=== PATIENT | female | born 1955 | race Caucasian/White ===

== ENCOUNTER 2020-06-08 08:03 | Outpatient (CLI) | payer OTHER, SELFPAY ==
[2020-06-08 08:30] LABS: Hematocrit 43.6 % (37.0-47.0); Hemoglobin 14.4 g/dL (12.0-15.0); Mean Corpuscular Hemoglobin 29.4 pg (26-34); Mean Corpuscular Volume 89.2 fl (80-100); Mean Platelet Volume 9.4 fl (7.4-10.4); Platelet Count Result 230 k/mm3 (150-375); Red Blood Count 4.89 M/mm3 (4.2-5.4); Red Cell Distribution Width 12.8 % (11.5-14.5); White Blood Count 4.5 K/mm3 (4.5-10.0)
[2020-06-08 08:54] LABS: LDL Cholesterol Direct 93 mg/dL
[2020-06-08 09:29] LABS: Alanine Aminotransferase 16 U/L (4-35); Albumin Level 4.2 g/dL (3.5-5.1); Alkaline Phosphatase 69 U/L (38-126); Anion Gap 4 mmol/L (8-16); Aspartate Amino Transferase 24 U/L (14-36); Bilirubin,Total 0.5 mg/dL (0.2-1.3); Blood Urea Nitrogen 21 mg/dL (7-17); Carbon Dioxide 28 mmol/L (22-30); Chloride 108 mmol/L (98-107); Cholesterol 190 mg/dL (0-200); Estimated Glomerular Filt Rate > 60; Glucose 91 mg/dL (65-105); HDL Direct 72 mg/dL; Potassium 4.5 mmol/L (3.4-5.0); Sodium 140 mmol/L (137-145); Triglycerides 45 mg/dL (<150)
[2020-06-08 09:38] LABS: Vitamin D 25 Hydroxy 51.2 ng/mL
== END 2020-06-08 08:04 | disposition home or self-care (01) ==
PROVIDERS: PCP Family Medicine; Visit Provider Family Medicine
DX: Z00.00 Encounter for general adult medical examination without abnormal findings (principal); R53.83 Other fatigue; E78.2 Mixed hyperlipidemia; E55.9 Vitamin D deficiency, unspecified
CPT/HCPCS: 36415; 80053; 80061; 82306; 84443; 85027

== ENCOUNTER 2021-06-05 09:16 | Outpatient (CLI) | payer MEDICARE, OTHER, SELFPAY ==
[2021-06-05 09:44] LABS: Hematocrit 45.6 % (37.0-47.0); Hemoglobin 14.9 g/dL (12.0-15.0); Mean Corpuscular HGB Conc 32.7 g/dl (32-36); Mean Corpuscular Hemoglobin 29.6 pg (26-34); Mean Corpuscular Volume 90.5 fl (80-100); Mean Platelet Volume 9.3 fl (7.4-10.4); Platelet Count Result 225 k/mm3 (150-375); Red Blood Count 5.04 M/mm3 (4.2-5.4); Red Cell Distribution Width 13.2 % (11.5-14.5)
[2021-06-05 10:04] LABS: Alanine Aminotransferase 16 U/L (4-35); Albumin Level 4.4 g/dL (3.5-5.1); Alkaline Phosphatase 72 U/L (38-126); Anion Gap 5 mmol/L (8-16); Aspartate Amino Transferase 23 U/L (14-36); Bilirubin,Total 0.5 mg/dL (0.2-1.3); Blood Urea Nitrogen 24 mg/dL (7-17); Calcium 9.2 mg/dL (8.4-10.2); Carbon Dioxide 25 mmol/L (22-30); Chloride 108 mmol/L (98-107); Cholesterol 198 mg/dL (0-200); Estimated Glomerular Filt Rate > 60; Glucose 101 mg/dL (65-110); HDL Direct 78 mg/dL; Potassium 4.4 mmol/L (3.4-5.0); Sodium 138 mmol/L (137-145); Triglycerides 41 mg/dL (<150)
[2021-06-05 10:15] LABS: LDL Cholesterol Direct 89 mg/dL
[2021-06-05 10:43] LABS: Thyroid Stimulating Hormone Reflex 0.921 uIU/mL (0.465-4.68)
== END 2021-06-05 09:17 | disposition home or self-care (01) ==
PROVIDERS: PCP Family Medicine; Visit Provider Family Medicine
DX: E11.9 Type 2 diabetes mellitus without complications (principal); R53.83 Other fatigue; E78.2 Mixed hyperlipidemia
CPT/HCPCS: 36415; 80053; 80061; 84443; 85027

== ENCOUNTER 2021-08-13 00:08 | Day surgery (SDC) | payer MEDICARE, SELFPAY ==
[2021-07-31 14:14] VITALS: BMI 31.0
[2021-08-13 08:37] VITALS: BP 128/77; PULSE 86; RESP 18; TEMP 36.5; O2SAT 100
[2021-08-13] MEDS: LACTATED RINGERS 1,000 ML 150 ML IV CONT (08:40)
--- NOTE | 2021-08-13 09:19 | P.CONGI_ITS ---
Assessment and Plan Assessment and plan (1) Positive colorectal cancer screening using Cologuard test: Code(s): R19.5 - Other fecal abnormalities Status: Acute Assessment and Plan: Patient found to have positive Cologuard test. For this reason screening colonoscopy to be performed today. GI Consult Note Consult date/time: 08/13/21 09:19 HPI: Guadalupe Ray is a 66 year old female Presents for screening colonoscopy. Patient recently found to have a positive Cologuard test. Patient reports that her current weight appetite and bowel movements are normal. She denies abdominal pain. She has had no bleeding. Family history noncontributory. Review of Systems Review of Systems: All systems reviewed & are unremarkable except as noted in HPI and below PMFSH Past Medical History Medical History Hypertension Insomnia Surgical History Surgical History History of hip replacement Family History Family History Mother Hypertension Family history of kidney disease Family history of malignant neoplasm of breast in first degree relative, Onset Age: 70 Patient's mother is Sibling Patient's brother is in good health Father Family history of Alzheimer's disease Patient's father is Social History Social History Smoking status: Never smoker Second hand tobacco smoke exposure: No Alcohol intake: current Alcohol use details: socially Substance use: never Substance use type: does not use Living arrangements: with family Spiritual care concerns: No Meds Home Medications and Allergies Home Medications Medication Instructions Recorded Confirmed Type cetirizine 10 mg tablet 10 mg PO DAILY PRN 05/11/20 08/13/21 History fluticasone propionate 50 1 spray INTRANASAL DAILY PRN 05/11/20 08/13/21 History mcg/actuation nasal spray,suspension mirtazapine 15 mg tablet See Rx Instructions PO QHS #30 09/24/20 08/13/21 Rx tablet meloxicam 15 mg tablet 15 mg PO DAILY #90 tablet 05/28/21 08/13/21 Rx zolpidem 10 mg tablet 10 mg PO .HS PRN #90 tablet 07/26/21 08/13/21 Rx losartan 100 mg tablet 100 mg PO DAILY #90 tablet 07/30/21 08/13/21 Rx Allergies Allergy/AdvReac Type Severity Reaction Status Date / Time No Known Allergies Allergy Verified 08/13/21 08:35 Vital Signs Vital Signs - 24 hr 08/13/21 08:37 Temperature 97.7 F Pulse Rate 86 Respiratory Rate 18 Blood Pressure 128/77 Pulse Oximetry 100 Exam Narrative: Physical exam reveals patient to be alert. Vital signs stable. HEENT exam is unremarkable. Patient is anicteric. Lungs are clear to auscultation and percussion. Heart is without murmur or extra sounds. Abdominal exam bowel sounds are present soft nontender with no h epatosplenomegaly. Digital external rectal exam is normal.
--- NOTE | 2021-08-13 10:03 | P.PNAN_ITS ---
Anes - Initial Pre Proc Eval Procedure: Operation Date: 08/13/21 10:00 Proposed Procedures p Colonoscopy - Tre Rebolledo MD Date/Time: 08/13/21 10:03 Surgeon: Tre Rebolledo MD Pre Op Diagnosis: positive cologuard Patient Data Age: 66 Gender: F Height: 1.63 m Weight: 79.7 kg Last Vital Signs Temp 97.7 F 08/13/21 08:37 Pulse 86 08/13/21 08:37 Resp 18 08/13/21 08:37 BP 128/77 08/13/21 08:37 Pulse Ox 100 08/13/21 08:37 Allergies Allergy/AdvReac Type Severity Reaction Status Date / Time No Known Allergies Allergy Verified 08/13/21 08:35 Home Medications Medication Instructions Recorded Confirmed Type cetirizine 10 mg tablet 10 mg PO DAILY PRN 05/11/20 08/13/21 History fluticasone propionate 50 1 spray INTRANASAL DAILY PRN 05/11/20 08/13/21 History mcg/actuation nasal spray,suspension mirtazapine 15 mg tablet See Rx Instructions PO QHS #30 09/24/20 08/13/21 Rx tablet meloxicam 15 mg tablet 15 mg PO DAILY #90 tablet 05/28/21 08/13/21 Rx zolpidem 10 mg tablet 10 mg PO .HS PRN #90 tablet 07/26/21 08/13/21 Rx losartan 100 mg tablet 100 mg PO DAILY #90 tablet 07/30/21 08/13/21 Rx Patient hx anesthesia problems: none Family hx anesthesia problems: none Results Review: All pre-operative results and documents have been reviewed as part of the pre-operative evaluation. [facility] Past Medical History Medical History Hypertension Insomnia Surgical History Surgical History History of hip replacement Family History Family History Mother Hypertension Family history of kidney disease Family history of malignant neoplasm of breast in first degree relative, Onset Age: 70 Patient's mother is Sibling Patient's brother is in good health Father Family history of Alzheimer's disease Patient's father is Social History Social History Smoking status: Never smoker Second hand tobacco smoke exposure: No Alcohol intake: current Alcohol use details: socially Substance use: never Substance use type: does not use Living arrangements: with family Spiritual care concerns: No Anes - Eval Final PreProcedure Day of Procedure 08/13/21 10:03 Patient weight: obese Heart: regular rate and rhythm Lungs: clear to auscultation Airway: Mallampati scale class II Neurological: alert and oriented Last oral intake: >/= 8 hours ASA classification: II Emergent: no Anesthetic plan: proceed Anesthesia type and monitoring: general GIVS and standard monitoring Results Review: All pre-operative results and documents have been reviewed as part of the pre-operative evaluation. Informed Consent: The patient's anesthetic plan and its attendant risks and benefits were discussed with the patient/family/POA. Questions were solicited and answers provided to the satisfaction of the patient/family/POA.
[2021-08-13 10:24] VITALS: BP 115/70; PULSE 66; RESP 18; O2SAT 100
[2021-08-13 10:34] VITALS: BP 145/85; PULSE 63; RESP 16; O2SAT 100
[2021-08-13 10:44] VITALS: BP 146/86; PULSE 56; RESP 18; O2SAT 100
== END 2021-08-13 10:55 | disposition home health service (06) ==
PROVIDERS: PCP Family Medicine; Visit Provider Internal Medicine Gastroenterology
PROC: 0DJD8ZZ Inspection of Lower Intestinal Tract, Via Natural or Artificial Opening Endoscopic (ICD-10-PCS; CPT 45378; principal; 2021-08-13 10:00)
DX: R19.5 Other fecal abnormalities (principal); K64.8 Other hemorrhoids; I10 Essential (primary) hypertension; Z96.649 Presence of unspecified artificial hip joint
CPT/HCPCS: 45378; J2704; J7120

== ENCOUNTER → 2021-12-04 09:49 | Outpatient (CLI) | payer MEDICARE, SELFPAY ==
--- NOTE | ~2021-12-04 | DEXA_ITS ---
Bone Density Report Name: SWAPNA MITCHELL Age: 66 Sex: Female Ethnicity: White Date of : 1955 Indication: postmenopausal; screening for osteoporosis; parental hip fracture; Referring Provider: MELITON RUSSELL Study: Bone densitometry was performed. Exam Date: December 04, 2021 Accession number: [id number] Bone Density: Region BMD T-score Z-score Classification AP Spine (L1-L4) 1.139 0.8 2.6 Normal Femoral Neck (Right) 0.819 -0.3 1.3 Normal Total Hip (Right) 0.970 0.2 1.5 Normal World Health Organization criteria for BMD impression classify patients as: Normal (T-score at or above -1.0), Osteopenia (T-score between -1.0 and -2.5), or Osteoporosis (T-score at or below -2.5). 10-year Fracture Risk: FRAX not reported because: All T-scores for Spine Total, Hip Total, Femoral Neck at or above -1.0 Previous Exams: Region Exam Age BMD T-score BMD Change BMD Change Date g/cm2 vs Baseline vs Previous AP Spine(L1-L4) 12/04/2021 66 1.139 0.8 0.059* 0.059* 03/28/2009 53 1.081 0.3 Total Hip(Right) 12/04/2021 66 0.970 0.2 -0.028* -0.028* 03/28/2009 53 0.998 0.5 *Denotes significance at 95% confidence level, LSC for AP Spine = 0.022 g/cm2, LSC for Total Hip = 0.027 g/cm2 Clinical Information Provided by Patient: Parent has had a hip fracture Patient maximum height was 64.25 Menopause Age: 45 Drinks caffeinated beverages Onset of menses at age 17 Number of children 3 Impression: The patient has normal bone mass. The patient has risk factors, including: parental hip fracture. The BMD for the Total Hip(Right) decreased, changing by -0.028 since the last DXA exam. Discussion: BONE DENSITY IS ABOVE THE MINIMUM DESIRABLE LEVEL AT ALL SKELETAL SITES TESTED. This patient?s bone mineral density is above the minimum desirable level (T-score -1.0 or better) at all sites measured. The patient should follow a healthful lifestyle (good nutrition with adequate calcium and vitamin D, and appropriate weight-bearing exercise). Follow-Up: Consider repeating this study in 3 to 4 years to reassess this patient's status, or sooner if there is some new clinical indication. Reported by: JAIME on 12/04/2021 10:00:00 AM. Reviewed, dictated and finalized at location [facility]am KIMBLE
== END ==
PROVIDERS: PCP Family Medicine; Visit Provider Family Medicine
DX: Z78.0 Asymptomatic menopausal state (principal)
CPT/HCPCS: 77080

== ENCOUNTER 2022-03-26 13:18 | Outpatient (CLI) | payer MEDICARE, SELFPAY ==
[2022-03-26 14:09] LABS: Influenza A QL RT-PCR Positive (Negative); Influenza B QL RT-PCR Negative (Negative); RSV RNA, RT-PCR Negative (Negative); SARS-CoV-2 RNA PCR Negative
== END 2022-03-26 13:19 | disposition home or self-care (01) ==
LOC: ANHLAB 13:20
PROVIDERS: PCP Family Medicine; Visit Provider Family Medicine
DX: J06.9 Acute upper respiratory infection, unspecified (principal); Z20.822 Contact with and (suspected) exposure to COVID-19
CPT/HCPCS: 87637

== ENCOUNTER 2022-06-04 08:05 | Outpatient (CLI) | payer MEDICARE, SELFPAY ==
[2022-06-04 09:58] LABS: Alanine Aminotransferase 21 U/L (6-35); Albumin Level 4.3 g/dL (3.5-5.1); Alkaline Phosphatase 83 U/L (38-126); Anion Gap 5 mmol/L (8-16); Aspartate Amino Transferase 24 U/L (14-36); Bilirubin,Total 0.5 mg/dL (0.2-1.3); Blood Urea Nitrogen 18 mg/dL (7-17); Calcium 9.1 mg/dL (8.4-10.2); Carbon Dioxide 27 mmol/L (22-30); Chloride 108 mmol/L (98-107); Cholesterol 183 mg/dL (0-200); Estimated Glomerular Filt Rate > 60; Glucose 90 mg/dL (65-110); HDL Direct 70 mg/dL; Potassium 4.2 mmol/L (3.4-5.0); Sodium 140 mmol/L (137-145); Triglycerides 39 mg/dL (<150)
[2022-06-04 10:08] LABS: Basophils Percent Auto 0.4 % (0.2-1.2); Eosinophils Absolute Auto 0.1 K/mm3 (0-0.3); Eosinophils Percent Auto 1.5 % (0-4.4); Hematocrit 41.9 % (37.0-47.0); Hemoglobin 13.8 g/dL (12.0-15.0); Immature Granulocyte Absolute 0.05 K/mm3 (0.00-0.031); Immature Granulocyte Percent A 1.1 % (0-0.5); Lymphocytes Absolute Auto 1.49 K/mm3 (0.9-3.2); Lymphocytes Percent Auto 31.9 % (18.3-44.2); Mean Corpuscular HGB Conc 32.9 g/dl (32-36); Mean Corpuscular Hemoglobin 29.4 pg (26-34); Mean Corpuscular Volume 89.3 fl (80-100); Mean Platelet Volume 9.9 fl (7.4-10.4); Monocytes Absolute Auto 0.4 K/mm3 (0.1-0.6); Monocytes Percent Auto 8.1 % (2.6-8.5); Neutrophils Absolute Auto 2.7 K/mm3 (1.3-6.7); Platelet Count Result 258 k/mm3 (150-375); Red Blood Count 4.69 M/mm3 (4.2-5.4); Red Cell Distribution Width 14.1 % (11.5-14.5); White Blood Count 4.7 K/mm3 (4.5-10.0)
[2022-06-04 10:10] LABS: LDL Cholesterol Direct 82 mg/dL
[2022-06-04 10:56] LABS: Vitamin D 25 Hydroxy 40.7 ng/mL
== END 2022-06-04 08:06 | disposition home or self-care (01) ==
PROVIDERS: PCP Family Medicine; Visit Provider Family Medicine
DX: R23.3 Spontaneous ecchymoses (principal); R53.83 Other fatigue; E78.2 Mixed hyperlipidemia; E55.9 Vitamin D deficiency, unspecified; I10 Essential (primary) hypertension
CPT/HCPCS: 36415; 80053; 80061; 82306; 84443; 85025

== ENCOUNTER 2022-07-01 09:41 | Outpatient (CLI) | payer MEDICARE, SELFPAY ==
--- NOTE | ~2022-07-01 | MM_ITS ---
EXAMINATION: MM screening lesli BI w thomas HISTORY: Screening TECHNIQUE: Craniocaudal and mediolateral oblique 3-D tomosynthesis images were obtained and synthetic 2-D images were generated. CAD analysis was submitted and interpreted. COMPARISON: No prior mammogram is available for comparison at this institution. BREAST PARENCHYMAL COMPOSITION: There are scattered areas of fibroglandular density. FINDINGS: There is no evidence of suspicious mass, calcification, or architectural distortion to sugg est malignancy in either breast. There has been no suspicious interval change. IMPRESSION: 1. No mammographic evidence of malignancy. 2. Recommend routine screening mammography in one year. BI-RADS Category 1: Negative Reviewed, dictated and finalized at location A.
== END 2022-07-01 09:42 | disposition home or self-care (01) ==
LOC: ANHIMG 09:47
PROVIDERS: PCP Family Medicine; Visit Provider Family Medicine
DX: Z12.31 Encounter for screening mammogram for malignant neoplasm of breast (principal)
CPT/HCPCS: 77063; 77067

== ENCOUNTER 2022-08-04 14:24 | Outpatient (CLI) | payer MEDICARE, SELFPAY ==
--- NOTE | ~2022-08-04 | CT_ITS ---
EXAMINATION: CT sinus wo con DATE: 08/04/2022 14:43 INDICATION: Fluid in the sinuses TECHNIQUE: Computed tomography (CT) of the paranasal sinuses was performed without intravenous contra st. The dose-length product (DLP) was 335.32 mGy-cm. Iterative reconstruction was used. COMPARISON: None FINDINGS: The right frontal sinus is hypoplastic. There is otherwise normal development and pneumatiz ation of the paranasal sinuses. There is complete opacification of the left maxillary sinus with scle rosis of the sinus peña. The frontal, sphenoid, ethmoid, and right maxillary sinuses are clear. The right ostiomeatal complexes patent. Visualized soft tissues are unremarkable. IMPRESSION: 1. Chronic left maxillary sinusitis Reviewed, dictated and finalized at location L.
== END 2022-08-04 14:25 | disposition home or self-care (01) ==
PROVIDERS: PCP Family Medicine; Visit Provider Otolaryngology
DX: J32.0 Chronic maxillary sinusitis (principal)
CPT/HCPCS: 70486

== ENCOUNTER 2023-01-12 14:14 | Outpatient (CLI) | payer MEDICARE, SELFPAY ==
--- NOTE | 2023-01-12 14:27 | ECG_ITS ---
Measurements Intervals [place] Rate: 72 P: 51 NE: 144 QRS: -33 QRSD: 90 T: 57 QT: 388 QTc: 426 Interpretive Statements SINUS RHYTHM MARKED LEFT AXIS DEVIATION [QRS AXIS < -30] NO PREVIOUS ECG AVAILABLE FOR COMPARISON Electronically Signed On 01-13-2023 12:09:26 CDT by Joy Clay M.D.
== END 2023-01-12 14:15 | disposition home or self-care (01) ==
LOC: ANHCARD 14:16
PROVIDERS: PCP Family Medicine; Visit Provider Family Medicine
DX: I10 Essential (primary) hypertension (principal); R93.1 Abnormal findings on diagnostic imaging of heart and coronary circulation
CPT/HCPCS: 93005

== ENCOUNTER 2023-01-26 09:55 | Outpatient (CLI) | payer MEDICARE, SELFPAY ==
[2023-01-26 11:16] LABS: Basophils Percent Auto 0.3 % (0.2-1.2); Eosinophils Absolute Auto 0.1 K/mm3 (0-0.3); Hematocrit 42.7 % (37.0-47.0); Hemoglobin 13.8 g/dL (12.0-15.0); Immature Granulocyte Absolute 0.02 K/mm3 (0.00-0.031); Immature Granulocyte Percent A 0.3 % (0-0.5); Lymphocytes Absolute Auto 1.72 K/mm3 (0.9-3.2); Lymphocytes Percent Auto 25.7 % (18.3-44.2); Mean Corpuscular HGB Conc 32.3 g/dl (32-36); Mean Corpuscular Hemoglobin 29.6 pg (26-34); Mean Corpuscular Volume 91.4 fl (80-100); Mean Platelet Volume 9.4 fl (7.4-10.4); Monocytes Absolute Auto 0.4 K/mm3 (0.1-0.6); Monocytes Percent Auto 6.3 % (2.6-8.5); Neutrophils Absolute Auto 4.4 K/mm3 (1.3-6.7); Neutrophils Percent Auto 66.4 % (45.5-73.1); Platelet Count Result 281 k/mm3 (150-375); Red Blood Count 4.67 M/mm3 (4.2-5.4); White Blood Count 6.7 K/mm3 (4.5-10.0)
[2023-01-26 11:26] LABS: Albumin Level 4.3 g/dL (3.5-5.1); Anion Gap 6 mmol/L (8-16); Blood Urea Nitrogen 24 mg/dL (7-17); Calcium 9.3 mg/dL (8.4-10.2); Carbon Dioxide 27 mmol/L (22-30); Chloride 105 mmol/L (98-107); Estimated Glomerular Filt Rate > 60; Glucose 90 mg/dL (65-110); Potassium 4.4 mmol/L (3.4-5.0); Sodium 138 mmol/L (137-145)
[2023-01-26 11:28] LABS: Urine Cotinine NEGATIVE
== END 2023-01-26 09:56 | disposition home or self-care (01) ==
LOC: ANHSURGERY 09:58
PROVIDERS: PCP Family Medicine; Visit Provider Orthopaedic Surgery
DX: Z01.818 Encounter for other preprocedural examination (principal); M17.12 Unilateral primary osteoarthritis, left knee
CPT/HCPCS: 80048; 80307; 82040; 83036; 85025; 87081; 87147; 87181; 87186

== ENCOUNTER 2023-02-11 00:49 | Day surgery (SDC) | payer MEDICARE, SELFPAY ==
[2023-01-26 10:02] VITALS: BMI 30.2
--- NOTE | 2023-01-26 10:28 | PC.NURSE ---
Report to the Outpatient Waiting Room, entrance under the green pavilion located off [facility], at time _1000 on date __02/11/23 . Planned Procedure Time: __1200 . Time changes happen often and if your time is changed the preop area will call you the afternoon before. - You and your visitor will be asked to self-screen and do not enter if you have any COVID symptoms. - A mask is optional within the hospital at this time. Patients may have clear liquids (water, carbonated beverages, clear teas, apple juice) until 3 hours prior to surgery with a maximum of 20 ounces. - No food from midnight until time of surgery - Infants may have breast milk until 4 hours before surgery, infant formula 6 hours prior to surgery. - Children will be allowed to drink immediately following surgery. If applicable, please bring a bottle or sippy cup to assist with drinking. Juice, water, soda, and popsicles are readily available. For infants on formula, please bring formula the day of surgery. Pacifiers are allowed. Take the following medications with a SIP of water the morning of surgery: ___NONE DO NOT STOP ANY OF YOUR OTHER PRESCRIPTION MEDICATIONS PRIOR TO SURGERY ?EXCEPT THE FOLLOWING Medications to discontinue per physician MELOXICAM 7 DAYS PRE OP PER DR MASON LAST DOSE 02/03/23. ALL VITAMINS 3 DAYS PRE OP.LAST DOSE 02/07/23 Please no make-up, nail malay, hairspray, perfume, deodorant, or body powder the day of surgery. No jewelry (including any body piercings) or valuables the day of surgery, leave them at home. Please take a shower or bath the night before, or the morning of, surgery with an antibacterial soap. Wear comfortable, loose fitting clothing. Children are encouraged to wear pajamas. - Jewelry must be removed prior to entering the operating room. Rings and piercings that are not removed may be cut off. - The hospital will not accept responsibility for valuables. - Please leave all valuables, including medications, at home the day of surgery. If you are going home after surgery, a licensed stock car driver must drive you home. - NO public transportation without another adult if you receive anesthesia. - We recommend that an adult stay with you for 24 hours following discharge. - We also recommend that you do not drive, make important decision, drink alcoholic beverages, or take any drugs that were not prescribed by your health care provider for at least 24 hours after your discharge time. For Pediatric surgeries, we recommend two adults accompany the child home. Follow any additional instructions given to you from your surgeon. If you or anyone in your household have experienced Covid symptoms in the past week, please notify your surgeon or the nurse liaison at the phone number below for possible testing. VERAL AND WRITTEN instructions given to __PATIENT and asked if any additional questions and then verbalized understanding. Patient advised to call surgeon office or pre surgery nurse liaison [phone] if any additional questions.
[2023-01-26 10:44] VITALS: BP 138/94; PULSE 74; RESP 18; TEMP 36.8; O2SAT 99
--- NOTE | 2023-02-09 12:27 | PM.IMHP ---
H&P: HPI History of Present Illness Date/Time: 02/09/23 12:27 Chief Complaint: DJD left knee Narrative: 67-year-old female of Dr. Pryor who presents today for a left total knee arthroplasty. Patient has been having symptoms for over 2 years in the knee. She had a cortisone injection 2 years ago which helped only for a short amount of time. She has tried different anti-inflammatories and most recently has been on meloxicam 15 mg daily. Patient feels that she is having significant symptoms on a daily basis and it is affecting her daily life. She would like to proceed with total knee arthroplasty at this point. 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 Review of Systems Review of Systems: All systems reviewed & are unremarkable except as noted in HPI and below PMFSH Past Medical History Medical History Hypertension Insomnia Surgical History Surgical History History of hip replacement Family History Family History Mother Hypertension Family history of kidney disease Family history of malignant neoplasm of breast in first degree relative, Onset Age: 70 Patient's mother is Sibling Patient's brother is in good health Father Family history of Alzheimer's disease Patient's father is Social History Social History Smoking status: Never smoker Second hand tobacco smoke exposure: No Additional smoking assessment comments: DENIES ANY FORM OF TOBACCO USE Alcohol intake: current Drinks per week: 3 Alcohol use details: socially Substance use: never Substance use type: does not use Lack of Transportation: No Lack of Food: Never True Current Housing: I Have Housing Concerned About Future Housing: No Difficulty Paying Gas/Electric Bills: No Difficulty Paying for Meds: No Currently Unemployed: No Education: Master's Degree or Higher Difficulty w/ Childcare or Family Care: No Living arrangements: with family Gender identity (if verbalized by the patient): Female Sexual Orientation (if Verbalized by the Patient): Straight or Heterosexual Spiritual care concerns: No Agree to blood products: Yes Meds Home Medications and Allergies Home Medications Medication Instructions Recorded Confirmed Type cetirizine 10 mg tablet (Zyrtec) 10 mg PO DAILY PRN Allergy Symptoms 05/11/20 01/26/23 History fluticasone propionate 50 2 spray intranasal DAILY PRN 05/11/20 01/26/23 History mcg/actuation nasal Allergy Symptoms spray,suspension (Flonase Allergy Relief) losartan 100 mg tablet 100 mg PO DAILY #90 tabs 07/17/22 01/26/23 Rx meloxicam 15 mg tablet 15 mg PO DAILY #90 tabs 08/14/22 01/26/23 Rx zolpidem 10 mg tablet 10 mg PO .HS PRN insomnia #90 tabs 08/14/22 01/26/23 Rx magnesium 200 mg tablet 400 mg PO DAILY 01/26/23 01/26/23 History pdgtpaaturqm-Gd-fgnk-minerals 18 1 tablet PO DAILY 01/26/23 01/26/23 History mg-0.4 mg tablet Allergies Allergy/AdvReac Type Severity Reaction Status Date / Time No Known Allergies Allergy Verified 01/26/23 10:03 Exam Narrative: 67-year-old female alert pleasant. She is 5 ft 4 173 lb. Left knee range of motion is from 3-140 degrees. No definite effusion. She has severe apprehension of the patellofemoral joint with grind. She has normal stability in the knee. No medial or lateral joint line tenderness. 2+ dorsalis pedis pulse palpable. Hip range of motion is full without discomfort. Negative Stinchfield maneuver. She has normal sensation left lower extremity. No edema. She has kkfq-us-kbwnqstb quad atrophy on the left but good quad strength. Resp: Auscultation: clear to auscultation bilaterally Cardio: Rate: regular rate Rhythm: regular rhythm A
--- NOTE | 2023-02-10 14:45 | WPDANESEPPF ---
Anes - Initial Pre Proc Eval Procedure: Operation Date: 02/11/23 12:00 Proposed Procedures p Left Total Knee Arthroplasty - Marbin Graham MD Date/Time: 02/10/23 14:45 Surgeon: Marbin Graham MD Pre Op Diagnosis: Severe Patellafemoral O.A. Left Knee Patient Data Age: 67 Gender: F Height: 1.63 m Weight: 80 kg Last Vital Signs Temp 98.3 F 01/26/23 10:44 Pulse 74 01/26/23 10:44 Resp 18 01/26/23 10:44 BP 138/94 H 01/26/23 10:44 Pulse Ox 99 01/26/23 10:44 O2 Del Method Room Air 01/26/23 10:44 Allergies Allergy/AdvReac Type Severity Reaction Status Date / Time No Known Allergies Allergy Verified 02/11/23 10:11 Home Medications Medication Instructions Recorded Confirmed Type cetirizine 10 mg tablet (Zyrtec) 10 mg PO DAILY PRN Allergy Symptoms 05/11/20 01/26/23 History fluticasone propionate 50 2 spray intranasal DAILY PRN 05/11/20 02/11/23 History mcg/actuation nasal Allergy Symptoms spray,suspension (Flonase Allergy Relief) losartan 100 mg tablet 100 mg PO DAILY #90 tabs 07/17/22 02/11/23 Rx meloxicam 15 mg tablet 15 mg PO DAILY #90 tabs 08/14/22 02/11/23 Rx magnesium 200 mg tablet 400 mg PO DAILY 01/26/23 02/11/23 History fyzzxvpbpwbb-Cu-bguo-minerals 18 1 tablet PO DAILY 01/26/23 02/11/23 History mg-0.4 mg tablet zolpidem 10 mg tablet 10 mg PO .HS PRN insomnia #90 tabs 02/10/23 02/11/23 Rx Patient hx anesthesia problems: none Family hx anesthesia problems: none Results Review: All pre-operative results and documents have been reviewed as part of the pre-operative evaluation. [facility] Past Medical History Medical History Hypertension Insomnia Surgical History Surgical History History of hip replacement Family History Family History Mother Hypertension Family history of kidney disease Family history of malignant neoplasm of breast in first degree relative, Onset Age: 70 Patient's mother is Sibling Patient's brother is in good health Father Family history of Alzheimer's disease Patient's father is Social History Social History Smoking status: Never smoker Second hand tobacco smoke exposure: No Additional smoking assessment comments: DENIES ANY FORM OF TOBACCO USE Alcohol intake: current Drinks per week: 3 Alcohol use details: socially Substance use: never Substance use type: does not use Lack of Transportation: No Lack of Food: Never True Current Housing: I Have Housing Concerned About Future Housing: No Difficulty Paying Gas/Electric Bills: No Difficulty Paying for Meds: No Currently Unemployed: No Education: Master's Degree or Higher Difficulty w/ Childcare or Family Care: No Living arrangements: with family Gender identity (if verbalized by the patient): Female Sexual Orientation (if Verbalized by the Patient): Straight or Heterosexual Spiritual care concerns: No Agree to blood products: Yes Anes - Eval Final PreProcedure Day of Procedure 02/10/23 14:45 Patient weight: normal Heart: regular rate and rhythm Lungs: clear to auscultation Airway: Mallampati scale class II Neurological: alert and oriented Last oral intake: >/= 8 hours ASA classification: II Emergent: no Anesthetic plan: proceed Anesthesia type and monitoring: general LMA and ETT and standard monitoring Results Review: All pre-operative results and documents have been reviewed as part of the pre-operative evaluation. Informed Consent: The patient's anesthetic plan and its attendant risks and benefits were discussed with the patient/family/POA. Questions were solicited and answers provided to the satisfaction of the patient/family/POA.
[2023-02-11] VITALS (10 sets, daily range): BP systolic 120–152; BP diastolic 64–88; PULSE 72–93; RESP 14–18; TEMP 36.2–38.3; O2SAT 93–100
--- NOTE | ~2023-02-11 | XR_ITS ---
EXAMINATION: [id number] DATE: 02/11/2023 16:49 INDICATION: Postoperative evaluation following left total knee arthroplasty. TECHNIQUE: Anteroposterior and lateral views of the left knee were obtained. COMPARISON: None. FINDINGS: Left total knee arthroplasty without patellar resurfacing appears well seated and in near anatomic al ignment. No fractures identified. Expected postoperative subcutaneous and intra-articular gas. IMPRESSION: 1. Left total knee arthroplasty, negative for postoperative purposes. Reviewed, dictated and finalized at location A.
[2023-02-11] MEDS: VANCOMYCIN 1,250 MG/NS 250 ML 1,250 MG/250 ML BAG 166.67 MG IVPB (10:40)
[2023-02-11] MEDS: LACTATED RINGERS 1,000 ML 30 ML IV CONT ×2 (10:40→16:29)
[2023-02-11] MEDS: ACETAMINOPHEN 500 MG TABLET 1000 MG PO ×3 (10:49→23:35)
[2023-02-11] MEDS: TRANEXAMIC ACID 1,000MG/ISO100 1,000 MG/100 ML BAG 200 MG IVPB (10:49)
--- NOTE | 2023-02-11 12:10 | WPDHPUPDATE1 ---
History and Physical Update Update Date/Time: 02/11/23 12:10 History and Physical has been reviewed, including an updated exam of the patient. There are NO changes in the patient's condition. Risks, benefits, and alternatives have been discussed and questions answered. Patient agrees to proceed with procedure.
[2023-02-11] MEDS: ceFAZolin SODIUM 1 GM VIAL 3 GM (12:25)
[2023-02-11] MEDS: ceFAZolin 2 GM/D5W 50 ML 2 GM/50 ML BAG IVPB (12:25)
[2023-02-11] MEDS: GENTAMICIN BONE CEMENT REFOBACIN 1 EACH TOPICAL (15:02)
[2023-02-11] MEDS: TRANEXAMIC ACID 1,000 MG/10 ML AMPUL 1000 MG IV PUSH (15:13)
[2023-02-11] MEDS: ceFAZolin SODIUM 1 GM VIAL 2 GM IV PUSH (15:15)
[2023-02-11] MEDS: KETOROLAC 15 MG/ML VIAL (*BKC) IV PUSH (15:59)
--- NOTE | 2023-02-11 16:13 | W.PM.PROC2 ---
Procedure Note - Detailed Date of Procedure 02/11/23 Pre-op Diagnosis Severe Patellafemoral O.A. Left Knee Post-op Diagnosis Same Procedure Performed Left total arthroplasty Surgeon Marbin Graham MD Pulmonary Nurse Practitioner Mic Rendon Anesthesia General Description of Procedure Patient was brought to the operating room and general anesthesia was administered. The left knee was prepped draped usual fashion. She received 2 g of Ancef weight based vancomycin 1 g of tranexamic acid preoperatively. Limb was exsanguinated tourniquet elevated to 300 mmHg. A 7 in longitudinal midline incision was used and a vastus medialis splitting approach utilized splitting the vastus medialis at the superior pole of patella. Infrapatellar fat pad was partially excised quadriceps synovectomy carried out. The patella was extremely worn as the preoperative x-rays suggested. It was completely concave all the way across to with a relative residual median ridge on its far medial aspect. Was concave from medial to lateral and proximal to distal. It surface was very sclerotic. The thickness laterally measured 8 mm 1 cm from its lateral edge at its thickest portion far medial aspect was a residual ridge of bone that had yet worn about 14 mm. I felt this was too thin course to safely resurface. A conservative lateral facetectomy was performed and we beveled the lateral surface. Osteophytes from around the patella and ectopic ossification from the soft tissues along the medial margin the patella was removed. The trochlea laterally was severely worn down but [place] line was very evident and drawn on the femur. The guide sander was inserted down the femoral canal after aspiration of canal contents using the 5 degree valgus cutting bushing 8 mm of bone removed the distal femurs and she seemed to have about 3? of hyperextension preoperatively. Next the tibial plateau was cut. Or goes to make a skim cut and our 1st cut did not quite get through the articular cartilage in the posterior aspect the medial femoral condyle. An additional 2 mm was removed and this gave an excellent cut perpendicular to the axis of the tibia with good bone quality. Meniscal remnants were excised the PCL was recessed. At 90? the medial side measured 8 mm lateral side 12 mm. Femoral sizing guide was applied the distal femur set at 5? of external rotation which matched [place] line and posterior referencing pinholes were placed. We applied the 62.5 cutting block the which appeared to fit line to line medial to lateral but it was going to notch. We applied the 65 cutting block and made a conservative anterior cut. I could see that the 65 would be far too wide. Therefore we put posterior slope on the distal femoral cuts such that the 62.5 cutting block would give a cut flush with the anterior cortex. For anterior cortex of the distal femur was for rounded rather than the usual flat surface which tended to be disposed to additional notching. The thick posterior and chamfer cuts were completed and the size 62.5 femoral component fit well line to line medial to lateral. The tibia was punched sizing this to a size 67 which fit line to line posterolateral to anteromedial with the proper rotation. We trialed and the 10 was a little bit loose in flexion and lacked about 7? of extension with no play medial laterally. An additional 2 mm of bone removed the distal femur and we read trialed this time with the 11 insert which gave appropriate stability to anterior drawer at 90?. I trialed with the 12 insert and at 90? there was no anterior-posterior play so seemed too tight. The 11 insert still had a barely positive bounce an additional mm bone was removed the distal femur and chamfer cuts revisited posterior femoral osteophyte was removed. With this the knee came out easily into full extension with 2 mm each mediolateral opening. Appropriate AP stability at 90? particularly with the arthrotomy closed. Leg holes of the distal
[2023-02-11] MEDS: ONDANSETRON INJ 4 MG/2 ML VIAL IV PUSH (17:24)
--- NOTE | 2023-02-11 17:53 | ADMGEN ---
This patient, Guadalupe Ray, was admitted to [facility] Surg Room 331-02. Patient/family oriented to hospital policies and general routines including ID bracelet, bed and alarms, visiting hours, pain management, procedures, bathroom and other care routines, personal items, smoking policy, room service/diet, and visiting hours. Information on how to activate the Rapid Response Team has been discussed. Patient/Family are encouraged to report perceived risks to care and to ask questions if they do not understand what they are told or what they should do.
[2023-02-11] MEDS: oxyCODONE HCL (*CRX) 2.5 MG TAB IR PO ×2 (18:14→21:47)
[2023-02-11] MEDS: SENNA/DOCUSATE SODIUM TABLET 2 TAB PO (18:14)
[2023-02-11] MEDS: VANCOMYCIN 1,000 MG/NS 250 ML 1,000 MG/250 ML BAG 250 MG IVPB (21:47)
[2023-02-11] MEDS: ZOLPIDEM TARTRATE (*CRX) 5 MG TABLET 10 MG PO (23:35)
[2023-02-11] MEDS: ceFAZolin 1 GM/NS 50 ML 1 GM/50 ML BAG IVPB (23:35)
[2023-02-12] MEDS: oxyCODONE HCL (*CRX) 2.5 MG TAB IR PO ×4 (02:16→14:10)
[2023-02-12 04:15] VITALS: BP 127/68; PULSE 81; RESP 16; TEMP 36.3; O2SAT 99
[2023-02-12] MEDS: ceFAZolin 1 GM/NS 50 ML 1 GM/50 ML BAG IVPB ×2 (06:19→14:10)
[2023-02-12] MEDS: ACETAMINOPHEN 500 MG TABLET 1000 MG PO ×2 (06:20→10:30)
[2023-02-12 06:58] LABS: Basophils Percent Auto 0.2 % (0.2-1.2); Hemoglobin 12.1 g/dL (12.0-15.0); Immature Granulocyte Absolute 0.05 K/mm3 (0.00-0.031); Immature Granulocyte Percent A 0.4 % (0-0.5); Lymphocytes Absolute Auto 1.11 K/mm3 (0.9-3.2); Lymphocytes Percent Auto 8.4 % (18.3-44.2); Mean Corpuscular HGB Conc 31.8 g/dl (32-36); Mean Corpuscular Hemoglobin 29.3 pg (26-34); Mean Platelet Volume 9.6 fl (7.4-10.4); Monocytes Absolute Auto 0.9 K/mm3 (0.1-0.6); Monocytes Percent Auto 7.1 % (2.6-8.5); Neutrophils Absolute Auto 11.1 K/mm3 (1.3-6.7); Neutrophils Percent Auto 83.9 % (45.5-73.1); Platelet Count Result 248 k/mm3 (150-375); Red Blood Count 4.13 M/mm3 (4.2-5.4); Red Cell Distribution Width 13.9 % (11.5-14.5); White Blood Count 13.2 K/mm3 (4.5-10.0)
[2023-02-12 07:02] LABS: Anion Gap 7 mmol/L (8-16); Blood Urea Nitrogen 21 mg/dL (7-17); Calcium 8.5 mg/dL (8.4-10.2); Carbon Dioxide 23 mmol/L (22-30); Chloride 107 mmol/L (98-107); Estimated CRCL calculation 61 ml/min; Estimated Glomerular Filt Rate > 60; Glucose 130 mg/dL (65-110); Potassium 4.2 mmol/L (3.4-5.0); Sodium 137 mmol/L (137-145)
[2023-02-12 07:18] VITALS: BP 143/77; PULSE 68; RESP 20; TEMP 36.1; O2SAT 100
--- NOTE | 2023-02-12 07:20 | PM.PNORT ---
Subjective Subjective Date/Time Seen: 02/12/23 07:20 Interval history: Postop day 1 patient is alert. Afebrile vital signs stable. Pain is well assisting is intact and dry. Patient has been up to the restroom overall she is doing very well morning labs are noted. Plan of patient work with therapy this morning and again this afternoon. Once IV antibiotics have been completed she will be due this afternoon. Objective Data Vital Signs Vital Signs: Vital Signs - 24 hr 02/11/23 10:03 02/11/23 16:29 02/11/23 16:40 Temperature 36.3 C L 38.3 C H 37.3 C Pulse Rate 79 72 93 Respiratory Rate 18 15 18 Blood Pressure 152/88 H 120/74 127/64 Pulse Oximetry 100 97 99 Oxygen Delivery Room Air Simple Face Mask Simple Face Mask Oxygen Flow Rate 6 6 02/11/23 16:55 02/11/23 17:00 02/11/23 17:10 Temperature Pulse Rate 81 83 Respiratory Rate 14 14 Blood Pressure 133/74 130/72 Pulse Oximetry 99 94 Oxygen Delivery Simple Face Mask Room Air Room Air Oxygen Flow Rate 6 02/11/23 17:25 02/11/23 17:48 02/11/23 18:18 Temperature 36.3 C L 36.3 C L 36.2 C L Pulse Rate 85 80 79 Respiratory Rate 14 14 18 Blood Pressure 138/85 148/82 H 151/77 H Pulse Oximetry 94 99 97 Oxygen Delivery Room Air Oxygen Flow Rate 02/11/23 20:05 02/11/23 20:00 02/11/23 23:45 Temperature 36.4 C L 36.5 C Pulse Rate 90 76 Respiratory Rate 16 16 Blood Pressure 142/83 H 148/68 H Pulse Oximetry 93 97 Oxygen Delivery Room Air Oxygen Flow Rate 02/12/23 04:15 Temperature 36.3 C L Pulse Rate 81 Respiratory Rate 16 Blood Pressure 127/68 Pulse Oximetry 99 Oxygen Delivery Oxygen Flow Rate Intake/Output Intake/Output: Intake & Output 02/09/23 02/10/23 02/11/23 02/12/23 23:59 23:59 23:59 23:59 Intake Total 1050 50 Output Total 200 Balance 850 50 Meds/Results Medications: Active Medications Generic Name Dose Route Start Last Admin Trade Name Freq PRN Reason Stop Dose Admin Acetaminophen 1,000 mg 02/11/23 17:33 02/12/23 06:20 Acetaminophen 500 Mg Tablet PO 1,000 mg Q6H [facility] Administration Apixaban 2.5 mg 02/12/23 09:00 Apixaban 2.5 Mg Tablet PO 02/25/23 21:01 Q12HR [facility] Cefdinir 300 mg 02/12/23 21:00 Cefdinir 300 Mg Capsule PO 02/19/23 09:01 Q12HR [facility] Fluticasone Propionate 2 spray 02/11/23 17:33 Fluticasone Propionate 0.05% Na Spr 16 Gm Btl (*Bkc) NASAL DAILY PRN Allergy Symptoms Cefazolin Sodium 1 gm in 50 mls @ 100 mls/hr 02/11/23 23:00 02/12/23 06:19 Ancef 1 Gm/Ns 50 Ml IVPB 02/12/23 15:29 100 mls/hr Q8H [facility] Administration Vancomycin HCl 1,000 mg in 250 mls @ 250 mls/hr 02/11/23 22:00 02/11/23 23:39 Vancomycin 1,000 Mg/Ns 250 Ml IVPB 02/12/23 10:59 Infused Q12H [facility] Infusion Loratadine 10 mg 02/11/23 17:33 Loratadine 10 Mg Tablet PO DAILY PRN Allergy Symptoms Losartan Potassium 100 mg 02/12/23 09:00 Losartan Potassium 100 Mg Tablet PO DAILY [facility] Magnesium Oxide 400 mg 02/12/23 09:00 Magnesium Oxide 400 Mg Tablet PO DAILY [facility] Multivitamins/Calcium 1 tablet 02/12/23 09:00 Therapeutic Multivitamins/Minerals Tab (*Bkc) PO DAILY [facility] Naloxone HCl 0.1 mg 02/11/23 17:33 Naloxone Hcl 0.4 Mg/Ml Vial IV PUSH Q2M PRN Opiate Reversal Oxycodone HCl 5 mg 02/11/23 17:33 Oxycodone Hcl (*Crx) 5 Mg Tab Ir PO Q4H PRN Pain Rated 7-10 Oxycodone HCl 2.5 mg 02/11/23 17:33 02/12/23 06:20 Oxycodone Hcl (*Crx) 2.5 Mg Tab Ir PO 2.5 mg Q4H [facility] Administration Polyethylene Glycol 17 gm 02/12/23 09:00 Polyethylene Glycol 3350 17 Gm Powd.Pack PO QAM [facility] Senna/Docusate Sodium 2 tab 02/11/23 17:33 02/11/23 18:14 Senna/Docusate Sodium Tablet PO 2 tab BID [facility] Administration Zolpidem Tartrate 10 mg 02/11/23 21:52 02/11/23 23:35 Zolpidem Tartrate (*Crx) 5 Mg Tablet PO 10 mg HS PRN Administration Insomnia Radiology
--- NOTE | 2023-02-12 07:21 | PM.DS ---
DS: Admitting Diagnosis Discharge Date 02/12 Admitting Diagnosis Left knee DJD DS: Discharge Diagnosis Discharge Diagnosis (1) Left knee DJD: Code(s): M17.12 - Unilateral primary osteoarthritis, left knee Status: Acute DS: Summary Hospital Course Hospital Course: 67-year-old female left total knee arthroplasty on 02/11. Underwent the procedure without complications. She has been afebrile vital signs are stable. She is weight-bearing as tolerated. Pain is well it will Tylenol as well as oxycodone 5 mg. Patient is on Eliquis for DVT this. She also go home with Senokot and MiraLax. She is also on Celebrex 200 mg daily. Patient was advised to keep leg elevated home prevent swelling but also do her exercises on an hourly basis at home. She has outpatient therapy starting next Thursday. She was advised any quite all the office otherwise we will see her at her appointments. Time Spent with Patient Time attestation: Total time spent providing and/or coordinating discharge services: DS: Data Data Completed and Pending Labs on day of discharge: Labs from last 24 hours 02/12/23 02/11/23 06:16 10:37 WBC 13.2 H RBC 4.13 L Hgb 12.1 Hct 38.0 MCV 92.0 MCH 29.3 MCHC 31.8 L RDW 13.9 Plt Count 248 MPV 9.6 Immature Gran % (Auto) 0.4 Neut % (Auto) 83.9 H Lymph % (Auto) 8.4 L [place] % (Auto) 7.1 Eos % (Auto) 0.0 Baso % (Auto) 0.2 Lymph # (Auto) 1.11 [place] # (Auto) 0.9 H Eos # (Auto) 0.0 Baso # (Auto) 0.0 Abs Immat Gran (auto) 0.05 H Absolute Neuts (auto) 11.1 H Absolute Nucleated RBC 0.0 Nucleated RBC % 0.0 Sodium 137 Potassium 4.2 Chloride 107 Carbon Dioxide 23 Anion Gap 7 L BUN 21 H Creatinine 0.80 Estim Creat Clear Calc 61 Estimated GFR > 60 Glucose 130 H Calcium 8.5 Blood Type A Positive Antibody Screen Negative Discharge Plan Discharge Patient Disposition: Home, Self-Care Discharge Instructions: MARBIN GRAHAM M.D [facility], [address] [address] POST-OPERATIVE DISCHARGE INSTRUCTIONS TOTAL KNEE ARTHROPLASTY 1. When resting, lie on back with leg elevated above heart to minimize swelling. Significant swelling could indicate a blood clot and if this occurs call the office (or go to the ER) to have a venous ultrasound. 2. Do exercise 5 times a day. 3. Do not sit with leg down except for meals. 4. Wound Care: Nursing will give additional dressings at discharge. Patient to change dressing at home 1 week from surgery, then maintain until seen in office. 5. May shower with dressing in place. 6. Follow weight bearing status instructions. IMPORTANT: Remember not to sit in the chair for more than 30 minutes at a time. As a rule, during the first 14 days after surgery, only sit in the chair to work on the chair knee bending stretch exercise, for meals or for use of the restroom. Sitting in the chair promotes significant swelling in the knee and leg which will make the knee stiff and more painful and which simulates having a blood clot in the veins of the leg. If this type of significant diffuse swelling occurs, an ultrasound at the hospital will be necessary to rule out a blood clot. Be up walking around with the walker for a few minutes every hour while awake and then rest laying on your back on the couch or in bed with your leg elevated on cushions or pillows. Do not rest in the chair. Stand Alone Forms: General Discharge Instructions Follow-up/Referrals: Marbin Graham MD [Physician] - Keep Reg. Scheduled Appt. Discharge Medications: New acetaminophen 500 mg Tablet 1,000 mg PO Q6H Qty: 90 0RF Eliquis 2.5 mg Tablet 2.5 mg PO Q12HR Qty: 28 0RF polyethylene glycol 3350 [Miralax] 17 gram Powder In Packet 17 g PO QAM Qty: 30 0RF sennosides-docusate sodium [Senokot-S] 8.6-50 mg Tablet 2 tab PO BID Qty: 60
[2023-02-12] MEDS: THERAPEUTIC MULTIVITAMINS/MINERALS TAB (*BKC) 1 TABLET PO (08:18)
[2023-02-12] MEDS: APIXABAN 2.5 MG TABLET PO (08:18)
[2023-02-12] MEDS: LOSARTAN POTASSIUM 100 MG TABLET PO (08:18)
[2023-02-12] MEDS: MAGNESIUM OXIDE 400 MG TABLET PO (08:18)
[2023-02-12] MEDS: CELECOXIB 200 MG CAPSULE PO (08:19)
[2023-02-12] MEDS: polyethylene glycoL 3350 17 GM POWD.PACK PO (08:19)
[2023-02-12] MEDS: SENNA/DOCUSATE SODIUM TABLET 2 TAB PO (08:19)
[2023-02-12] MEDS: VANCOMYCIN 1,000 MG/NS 250 ML 1,000 MG/250 ML BAG 250 MG IVPB (10:28)
[2023-02-12 11:18] VITALS: BP 140/62; PULSE 77; RESP 20; TEMP 36.2; O2SAT 100
--- NOTE | 2023-02-12 11:41 | PM.OP ---
Procedure Note - Brief Procedure Note - Brief Date of procedure: 02/12/23 Preop diagnosis-severe O.A. Left Knee Postop diagnosis same status post left total knee arthroplasty without resurfacing of the patella Procedure performed: Left total knee arthroplasty without resurfacing of the patella Surgeon: Marbin Graham MD 1st assistant director of security Mic Rendon PA-C Description of procedure: Patient was taken to the operating room on 02/11 2023. I entered the room at 12:40 p.m. at that point I assisted with placement the patient on the operating table in preparation for total knee arthroplasty. I then assisted the sterile prep and drape the left lower extremity from the thigh to the toes. The surgeon then commenced with the procedure I assisted throughout the procedure with positioning of the left lower extremity wound retraction hemostasis with suction cautery placement of the implant and excess cement removal once the cement was dry. At that point then I assisted with closure of the deep capsule of the knee joint after thorough irrigation and hemostasis was obtained. I then irrigated the wound once again and closed the skin layer using 2-0 Vicryl 3-0 Monocryl running stitch and surgical skin glue to seal the wound completely. I then applied a long sterile dressing wound was clean and dry. Once the patient was awakened from anesthesia assisted with transfer of the patient to the stretcher for transport to recovery room patient was in good condition without intraoperative complication. Total blood loss was approximately 150 cc. I exited the room at 4:20 p.m.. The patient was expected to spend the night for observation and pain control and be discharged the following day. Urine output (mL): 200
--- NOTE | 2023-02-12 14:19 | WPDANESPN ---
Anes - Prog Note Post-Op Date/Time: 02/12/23 14:19 Vital Signs: Last Vital Signs Temp 36.2 C L 02/12/23 11:18 Pulse 77 02/12/23 11:18 Resp 20 02/12/23 11:18 BP 140/62 02/12/23 11:18 Pulse Ox 100 02/12/23 11:18 O2 Del Method Room Air 02/12/23 08:57 O2 Flow Rate 6 02/11/23 16:55 Pain Score (VAS): 0 I/O: Intake & Output 02/11/23 02/12/23 02/12/23 23:59 07:59 15:59 Intake Total 430 392 7631 Output Total 200 200 Balance 039 812 7589 Laboratory Tests 02/12/23 06:16 02/12/23 06:16 02/12/23 06:16 WBC 13.2 H RBC 4.13 L Hgb 12.1 Hct 38.0 MCV 92.0 MCH 29.3 MCHC 31.8 L RDW 13.9 Plt Count 248 MPV 9.6 Immature Gran % (Auto) 0.4 Neut % (Auto) 83.9 H Lymph % (Auto) 8.4 L [place] % (Auto) 7.1 Eos % (Auto) 0.0 Baso % (Auto) 0.2 Lymph # (Auto) 1.11 [place] # (Auto) 0.9 H Eos # (Auto) 0.0 Baso # (Auto) 0.0 Abs Immat Gran (auto) 0.05 H Absolute Neuts (auto) 11.1 H Absolute Nucleated RBC 0.0 Nucleated RBC % 0.0 Sodium 137 Potassium 4.2 Chloride 107 Carbon Dioxide 23 Anion Gap 7 L BUN 21 H Creatinine 0.80 Estim Creat Clear Calc 61 Estimated GFR > 60 Glucose 130 H Calcium 8.5 Patient Feedback: Patient satisfied with anesthetic care.
== END 2023-02-12 14:55 | disposition home or self-care (01) ==
LOC: ANHSURGERY 09:52 → ANH3MEDSUR 17:35
PROVIDERS: Physician Assistant Surgical; PCP Family Medicine; Visit Provider Orthopaedic Surgery
PROC: (CPT 27447; principal; 2023-02-11 12:00)
DX: M17.12 Unilateral primary osteoarthritis, left knee (principal); I10 Essential (primary) hypertension; G47.00 Insomnia, unspecified; Z80.3 Family history of malignant neoplasm of breast
CPT/HCPCS: 27447; 36415; 73560; 80048; 80307; 82040; 83036; 85025; 86850; 86900; 86901; 87081; 87147; 87181; 87186; 97110; 97116; 97161; 97165; 97530; 97535; A9270; C1713; C1776; J0171; J0690; J1100; J1170; J1885; J2250; J2270; J2405; J2704; J2795; J3010; J3370; J7120

== ENCOUNTER 2023-05-14 11:00 | Outpatient (RCR) | payer MEDICARE, SELFPAY ==
--- NOTE | 2023-02-16 13:31 | OPREHPOC ---
Outpatient Therapy Plan of Care This is a Multidisciplinary Plan of Care that may contain components documented by all disciplines (PT, OT, and ST.) PT Problem 1 PT Problem #1 Knowledge Deficit PT Goal 1 Goal Pt to be IND with issued HEP Target Visit 16 PT Problem 2 PT Problem #2 Pain PT Goal 1 Goal Pt to report 75% improvement in overall sypmtoms. Target Visit 16 PT Goal 2 Goal Pt to report 75% improvement in overall symptoms. Target Visit 16 PT Problem 3 PT Problem #3 Impaired Range of Motion PT Goal 1 Goal Pt to improve active knee flexion ROM to 115 deg Target Visit 16 PT Goal 2 Goal Pt to improve active knee extension ROM to 0 deg. Target Visit 16 PT Problem 4 PT Problem #4 Impaired Gait PT Goal 1 Goal Pt to ambulate on level surface without gait deviations Target Visit 16 PT Goal 2 Goal Pt to improve 2 min walk distance from 105ft to 300ft. PT Problem 5 PT Problem #5 Impaired Functional Mobil PT Goal 1 Goal Pt to demonstrate a functional squat without deviations. Target Visit 16 PT Goal 2 Goal Pt to report being able to complete a 20 min walk daily with her dog. Target Visit 16
--- NOTE | 2023-02-16 13:31 | PTOPEVAL1 ---
Assessment and note entered by Caryl Garcia, PT, DPT Evaluation Information Assessment Status Evaluation Diagnosis L TKA Onset 02/11/23 Subjective Information Pt reports she had a L TKA on 02/11/23. So far, she states it feels like a ball of fire. She states she is stiff in the morning. She has been doing stairs with single railing support. She states she is very active at baseline, she walks 30 mins daily, goes to the gym 5x/wk for 1-2 hours, and also does water aerobic 2x/wk. Reported Pain Level Pain Score 1: Self Report Assessment PT Clinical Summary Guadalupe presents to therapy today for her initial evaluation following a L TKA on 02/11/23. Today she demonstrates decreased active and passive knee ROM, decreased strength, impaired gait, and impaired functional mobility all consistent with her procedure. Skilled therapy services are indicated to address the deficits noted above, to improve functional mobility, and to return to PLOF without limitations. Plan of Care Interventions Electrical Stimulation,Gait Training,Hot Pack/Cold Pack,Manual Therapy,Neuro Re-education,Patient/ Caregiver Educati,Therapeutic Activities, Therapeutic Exercise PT Services Indicated Yes Treatment Frequency and 2x/wk for 16 visits Duration These treatments will address the objective and functional deficits as defined above. The patient will be advanced safely and appropriately in order for the patient to progress towards his/her prior level of function. Additional exercises will be introduced and as well as a comprehensive home exercise program upon discharge, if needed, ?to ensure carryover of functional gains achieved in the clinic. This treatment plan has been reviewed and agreement upon by the patient.
--- NOTE | 2023-03-16 15:21 | PTOPPROG ---
Assessment and note entered by Caryl Garcia, PT, DPT Evaluation Information Assessment Status Progress Diagnosis L TKA Onset 02/11/23 Subjective Information Pt states she did a lot of walking on Thursday and had a near fall on Thursday and has been really caution since then. She states today her knee is really really sore and stiff today. She reports prior to this was progressing well. Pt was told to cut back on her exercises as she was exercising for hours a day. Assessment PT Clinical Summary Guadalupe presents to therapy today for her progress report following 8 visits of skilled therapy to treat the deficits of a L TKA on 02/11/23. Today she demonstrates decreased improved active and passive ROM compared to the first date. She continues to have lack of terminal knee extension and quad weakness. She is ambulating with a cane. Continuation of skilled therapy services are indicated to address the deficits noted above, to improve functional mobility, and to return to PLOF without limitations. Plan of Care Interventions Electrical Stimulation,Gait Training,Hot Pack/Cold Pack,Intermittent Compression,Manual Therapy, Neuro Re-education,Patient/Caregiver Educati, Therapeutic Activities,Therapeutic Exercise PT Services Indicated Yes Treatment Frequency and 2x/wk for 8 visits Duration These treatments will address the objective and functional deficits as defined above. The patient will be advanced safely and appropriately in order for the patient to progress towards his/her prior level of function. Additional exercises will be introduced and as well as a comprehensive home exercise program upon discharge, if needed, ?to ensure carryover of functional gains achieved in the clinic. This treatment plan has been reviewed and agreement upon by the patient.
--- NOTE | 2023-03-18 09:45 | PCPTNOTE ---
Patient called to cancel due to not having a ride.
--- NOTE | 2023-04-07 14:22 | PCPTNOTE ---
Patient called and canceled appointment for 04/08/23 due to having covid.
--- NOTE | 2023-04-10 09:50 | PCPTNOTE ---
Patient called & cancelled scheduled appointment this date due to being ill.
--- NOTE | 2023-04-16 16:47 | PTOPPROG ---
Assessment and note entered by Caryl Garcia, PT, DPT Evaluation Information Assessment Status Progress Diagnosis L TKA Onset 02/11/23 Subjective Information Pt states she had a fall while walking on Thursday of this week, she states this was a violent fall . She states she called the doctor and they seems not concerned. She states she is very frustrated about her recovery thus fall. She states she was not able to get up from the floor on her own and has been limited her activity since d/t a new fear of falling. She states her knee is more swollen, stiff and painful than usual. Assessment PT Clinical Summary Guadalupe presents to therapy today for her progress report following 13 visits of skilled therapy to treat the deficits of a L TKA on 02/11/23. Today she demonstrates improved active and passive knee flexion, improved gait speed, and improved functional mobility. Her progress was potentially limited by a fall earlier this week. She is making consistent progress towards her therapy goals. Continuation of skilled therapy services are indicated to address the remaining limitations, to improve functional mobility, and to return to PLOF without limitations. Plan of Care Interventions Electrical Stimulation,Gait Training,Hot Pack/Cold Pack,Intermittent Compression,Manual Therapy, Neuro Re-education,Patient/Caregiver Educati, Therapeutic Activities,Therapeutic Exercise PT Services Indicated Yes Treatment Frequency and 2x/wk for 8 visits Duration These treatments will address the objective and functional deficits as defined above. The patient will be advanced safely and appropriately in order for the patient to progress towards his/her prior level of function. Additional exercises will be introduced and as well as a comprehensive home exercise program upon discharge, if needed, ?to ensure carryover of functional gains achieved in the clinic. This treatment plan has been reviewed and agreement upon by the patient.
--- NOTE | 2023-05-06 09:51 | PCPTNOTE ---
Patient canceled this date due to plumbing issues.
--- NOTE | 2023-05-14 13:40 | PTOPPROG ---
Assessment and note entered by Caryl Garcia, PT, DPT Evaluation Information Assessment Status Progress Diagnosis L TKA Onset 02/11/23 Subjective Information Pt states she walking 1/4 a mile, biked 8 mins, and did LE weights yesterday, she states her knee is feeling really tight today. Pt states she still has times where her knee will buckle but she doesn't feel as unstable when this happens. She states she is doing more frequent shorter distances at home, without her cane. She states her sensation is starting to come back in her knee . She states she still cannot walk on uneven surfaces and walk stairs with a reciprocal pattern . Assessment PT Clinical Summary Guadalupe presents to therapy today for her progress report following 20 visits of skilled therapy to treat the deficits of a L TKA on 02/11/23. Today she demonstrates improved active and passive knee flexion to 0-127 passively, -2-120 actively, improved gait speed, and improved functional mobility. She continues to demonstrate compensation during ambulation, stair navigation, and functional squatting. She is making consistent progress towards her therapy goals. Continuation of skilled therapy services are indicated to address the remaining limitations, to improve functional mobility, and to return to PLOF without limitations. Plan of Care Interventions Electrical Stimulation,Gait Training,Hot Pack/Cold Pack,Intermittent Compression,Manual Therapy, Neuro Re-education,Patient/Caregiver Educati, Therapeutic Activities,Therapeutic Exercise PT Services Indicated Yes Treatment Frequency and 2x/wk for 8 visits Duration These treatments will address the objective and functional deficits as defined above. The patient will be advanced safely and appropriately in order for the patient to progress towards his/her prior level of function. Additional exercises will be introduced and as well as a comprehensive home exercise program upon discharge, if needed, ?to ensure carryover of functional gains achieved in the clinic. This treatment plan has been reviewed and agreement upon by the patient.
--- NOTE | 2023-05-15 12:30 | PCPTNOTE ---
This treatment is being continued on visit number [id number]. Please see documentation on both accounts to view progress. Completed interventions, outcomes, and problems have been marked as Inactive to facilitate the copying of the Care plan routine for recurring accounts.
== END 2023-05-15 11:51 | disposition still patient (30) ==
LOC: ANHGOSHPT 11:00
PROVIDERS: PCP Family Medicine; Visit Provider Orthopaedic Surgery
DX: M17.12 Unilateral primary osteoarthritis, left knee (principal)
CPT/HCPCS: 97014; 97016; 97110; 97140; 97161; 97530; 97750; G0283

== ENCOUNTER 2023-08-13 10:15 | Outpatient (RCR) | payer MEDICARE, SELFPAY ==
--- NOTE | 2023-05-15 12:30 | PCPTNOTE ---
The treatment documented on this account is a continuation of the treatment documented on visit number [id number]. Please see documentation on both accounts to view progress. The Plan of Care has been transitioned and updated within the new V#. I have addressed and agree with the discipline specific Problems, Interventions, and Goals for the current certification period. Completed interventions, outcomes, and problems have been marked as Inactive to facilitate the copying of the Care plan routine for recurring accounts.
--- NOTE | 2023-06-11 17:10 | PTOPPROG ---
Assessment and note entered by Caryl Garcia, PT, DPT Evaluation Information Assessment Status Progress Diagnosis L TKA Onset 02/11/23 Subjective Information Pt states she is has been really increasing her activity lately. Pt states she feels like overall things are going okay. She states she still cannot walk as far or as long as she would like, cannot work at an intensity she feels like she should, and still feels tighter than she expected it to be . Assessment PT Clinical Summary Guadlaupe presents to therapy today for her progress report following 28 visits of skilled therapy to treat the deficits of a L TKA on 02/11/23. Today she demonstrates good active and passive ROM, has returned to normal levels. She demonstrates improving grossly LE strength but still demonstrates significant weakness and instability with functional motions likes stairs, squats, and floor to stand transfers. She continues to have moments of instability throughout exercise. Continuation of skilled therapy services are indicated to address the remaining limitations, to improve functional mobility, and to return to PLOF without limitations. Plan of Care Interventions Electrical Stimulation,Gait Training,Hot Pack/Cold Pack,Manual Therapy,Neuro Re-education,Patient/ Caregiver Educati PT Services Indicated Yes Treatment Frequency and 1x/wk for 6 visits Duration These treatments will address the objective and functional deficits as defined above. The patient will be advanced safely and appropriately in order for the patient to progress towards his/her prior level of function. Additional exercises will be introduced and as well as a comprehensive home exercise program upon discharge, if needed, ?to ensure carryover of functional gains achieved in the clinic. This treatment plan has been reviewed and agreement upon by the patient.
--- NOTE | 2023-07-23 14:23 | PTOPPROG ---
Assessment and note entered by Caryl Garcia, PT, DPT Evaluation Information Assessment Status Progress Diagnosis L TKA Onset 02/11/23 Subjective Information Pt states her knee is doing good . She states she walked her dog for about 20-25 mins today and it got a little sore. She reports she is not taking Tylenol as often as she had been. She reports she can do her day to day activities with intermittent soreness. She states walking on uneven surfaces like grass and when going up stairs still feel like they take extra effort. Pt reports she feels like she is consistently progressing. She states she still feels like she cannot walk as far, walk as fast, or get on/off her bike. Assessment PT Clinical Summary Guadalupe presents to therapy today for her progress report following 33 visits of skilled therapy to treat the deficits of a L TKA on 02/11/23. Today she continues to demonstrate active knee ROM that is WNL. She reports an improvement in swelling and confidence with her knee. She demonstrates improving grossly LE strength, particularly in her L hip, and still demonstrates weakness and instability with functional motions likes stairs, squats, and floor to stand transfers. She continues to have moments of instability throughout exercise. Continuation of skilled services are indicated to address limitations with higher level functional tasks, and to return to PLOF. Plan of Care Interventions Electrical Stimulation,Gait Training,Hot Pack/Cold Pack,Manual Therapy,Neuro Re-education,Patient/ Caregiver Educati PT Services Indicated Yes Treatment Frequency and 1x/wk for 6 visits Duration These treatments will address the objective and functional deficits as defined above. The patient will be advanced safely and appropriately in order for the patient to progress towards his/her prior level of function. Additional exercises will be introduced and as well as a comprehensive home exercise program upon discharge, if needed, ?to ensure carryover of functional gains achieved in the clinic. This treatment plan has been reviewed and agreement upon by the patient.
== END 2023-08-17 10:09 | disposition still patient (30) ==
LOC: ANHGOSHPT 10:15
PROVIDERS: PCP Family Medicine; Visit Provider Orthopaedic Surgery
DX: M17.12 Unilateral primary osteoarthritis, left knee (principal); Z96.652 Presence of left artificial knee joint; Z47.1 Aftercare following joint replacement surgery
CPT/HCPCS: 97016; 97110; 97112; 97116; 97140; 97530; 97750

== ENCOUNTER 2023-08-31 09:33 | Outpatient (CLI) | payer MEDICARE, SELFPAY ==
[2023-08-31 13:48] LABS: Alanine Aminotransferase 20 U/L (6-35); Albumin Level 4.4 g/dL (3.5-5.1); Alkaline Phosphatase 83 U/L (38-126); Anion Gap 5 mmol/L (4-12); Aspartate Amino Transferase 55 U/L (14-36); Bilirubin,Total 0.8 mg/dL (0.2-1.3); Blood Urea Nitrogen 25 mg/dL (7-17); Calcium 9.8 mg/dL (8.4-10.2); Carbon Dioxide 26 mmol/L (22-30); Chloride 108 mmol/L (98-107); Cholesterol 189 mg/dL (0-200); Estimated Glomerular Filt Rate > 60; Glucose 94 mg/dL (65-110); HDL Direct 72 mg/dL; Potassium 4.5 mmol/L (3.4-5.0); Sodium 139 mmol/L (137-145); Triglycerides 49 mg/dL (<150)
[2023-08-31 14:01] LABS: LDL Cholesterol Direct 99 mg/dL
== END 2023-08-31 09:34 | disposition home or self-care (01) ==
LOC: ANHGOSHLAB 09:34
PROVIDERS: PCP Family Medicine; Visit Provider Family Medicine
DX: E78.2 Mixed hyperlipidemia (principal)
CPT/HCPCS: 36415; 80053; 80061

== ENCOUNTER 2023-11-03 09:45 | Outpatient (RCR) | payer MEDICARE, SELFPAY ==
--- NOTE | 2023-08-26 16:50 | OPREHPOC ---
Outpatient Therapy Plan of Care This is a Multidisciplinary Plan of Care that may contain components documented by all disciplines (PT, OT, and ST.) PT Goal 1 Goal Patient will demonstrate functional squat with out deviation Target Visit 42 PT Goal 2 Goal Patient will report no pain after 20 minute walk with her dog Target Visit 42 PT Problem 2 PT Problem #2 Impaired Strength PT Goal 1 Goal Patient will improve L hip abduction strength to 4 /5 to improve lateral stability with gait and stair activity Target Visit 42 PT Goal 2 Goal Patient will demonstrate 4+/5 break test strength on left quad for improve activation during gait and stair activity Target Visit 42
--- NOTE | 2023-08-26 16:51 | PTOPPROG ---
Assessment and note entered by David Judge, PT Evaluation Information Assessment Status Progress Diagnosis Post operative left TKA Subjective Information Patient reports that she is still not quite where she feels she needs to be. Continues to feel that she is off, hip is weak, and quad is weak. Does not trust herself on stairs. Still feels that she is battling frequent inflammation which at times is limiting her activity and walking. Does not feel that she is anywhere near where she was activity level prior to surgery. Assessment PT Clinical Summary Patient presents with continued significant weakness in left lateral hip. She is showing excellent knee ROM this date but still has some weakness in break test of left quad. We had a long education discussion about her gait pattern and her hip involvement in functional activity and will emphasize moving forward the activation and isolation of glute med as that appears to be directly relating to pelvic shift with gait and unreliability with stairs and lateral stabilization activity. She has been wearing insoles to support her arches which have helped her to a degree here recently. Patient appears to be very diligent and is not wanting to give up on therapy at this time as she is still determined to improve her outcome. Plan of Care PT Services Indicated Yes Treatment Frequency and 1x/week for 4 visits Duration These treatments will address the objective and functional deficits as defined above. The patient will be advanced safely and appropriately in order for the patient to progress towards his/her prior level of function. Additional exercises will be introduced and as well as a comprehensive home exercise program upon discharge, if needed, ?to ensure carryover of functional gains achieved in the clinic. This treatment plan has been reviewed and agreement upon by the patient.
--- NOTE | 2023-09-22 17:07 | OPREHPOC ---
Outpatient Therapy Plan of Care This is a Multidisciplinary Plan of Care that may contain components documented by all disciplines (PT, OT, and ST.) PT Goal 1 Goal Patient will demonstrate functional squat with out deviation Target Visit 45 Progress Partially Met PT Goal 2 Goal Patient will report no pain after 20 minute walk with her dog Target Visit 45 Progress Partially Met PT Problem 2 PT Problem #2 Impaired Strength PT Goal 1 Goal Patient will improve L hip abduction strength to 4 /5 to improve lateral stability with gait and stair activity Target Visit 45 Progress Partially Met PT Goal 2 Goal Patient will demonstrate 4+/5 break test strength on left quad for improve activation during gait and stair activity Target Visit 45 Progress Partially Met
--- NOTE | 2023-09-22 17:07 | PTOPPROG ---
Assessment and note entered by David Judge, PT Evaluation Information Assessment Status Progress Diagnosis Post operative left TKA Subjective Information Reports that she is not really having much pain anymore but she still has stiffness. She has been a little more consistent with elevation and compression. She has been wearing a compression brace on knee to try to help control of edema. She also bought new inserts that seem to have helped. Assessment PT Clinical Summary Patient has seen significant improvement to this point. We are starting to see controlled edema with elevation and compression. Still shifting during gait cycle and showing weak isolation of Quad muscle. We have emphasized pelvic control to allow for disengagement of knee during stairs and ambulation. We will continue to emphasize this as we approach discharge. She has been much more tolerant to hip stability and isolation. Plan of Care PT Services Indicated Yes Treatment Frequency and 1x/week for 3 visits Duration These treatments will address the objective and functional deficits as defined above. The patient will be advanced safely and appropriately in order for the patient to progress towards his/her prior level of function. Additional exercises will be introduced and as well as a comprehensive home exercise program upon discharge, if needed, ?to ensure carryover of functional gains achieved in the clinic. This treatment plan has been reviewed and agreement upon by the patient.
--- NOTE | 2023-11-03 17:05 | PTOPPROG ---
Assessment and note entered by David Judge, PT Evaluation Information Assessment Status Progress Diagnosis Post operative left TKA Subjective Information Reports that she had a couple of incidents of falling in which she felt like her knee locked up on her. The falls are infrequent but always related to her knee feeling like it is locking up. Feels that she has trouble with uneven surfaces. She has been aggressive with compressing the knee which has helped. Still has episodes of the knee swelling up on her. Outside of the locking up she is not having pain with walking or climbing steps which is a huge improvement. She is having some trouble with the knee releasing when walking down stairs but this does not hurt. Pain is resolved for the most part and knee feels strong. Still acknowledges some weakness on her left hip and its possible involvement in knee. Reports that if knee was not locking up on her she would be 100% better. Assessment PT Clinical Summary Had extensive conversation with patient this date regarding status in function and ambulation related to knee locking and concerns that she had. I emphasized conversation on her objective deficits that remained in hip strength and how that can relate to gross kinematic chain instability. Objectively the knee is performing very well with excellent ROM, Strength, and stability. Swelling occasionally arises but appears to be activity related from report. Patient has reported high levels of activity with directly relate to increased swelling as well, but this swelling appears to be resolved with compression at this time. She appears to only have concern with a locking sensation in knee which has occurred per report about once a month leading to reported falls. Patient is meeting with Dr. Ray tomorrow to discuss knee and her concerns. At this point patient has met majority of objective goals and therapy is awaiting recommendation from Dr. Ray following patient conversation on proceding with continue PT monitoring for functional concerns vs reinforcement of functional exercise. Plan of Care PT Services Indicated Yes Treatment Frequency and 1x/week for 4 weeks pending MD recommendation Duration These treatments will address the objective and functional deficits as defined above. The patient will be a
--- NOTE | 2023-11-16 09:09 | PTOPDC ---
Assessment and note entered by Caryl Garcia, PT, DPT Evaluation Information Assessment Status Discharge - Pt Not Present Diagnosis Post operative left TKA Subjective Information Called and spoke with pt following her appointment with her ortho doc. She states it was determined that her knee is really strong and her hip is the root cause of her troubles. She states she is getting a her MRI to r/o a tear. She has been increasing focus on her lateral hip strength and seems to be progressing well. Assessment PT Clinical Summary Pt feels IND with her hip exercises at this point and is okay to be discharged. If she has a tear she states she will want to return to therapy for additional intervention.
== END 2023-11-16 11:26 | disposition home or self-care (01) ==
LOC: ANHGOSHPT 09:45
PROVIDERS: PCP Family Medicine; Visit Provider Orthopaedic Surgery
DX: M17.12 Unilateral primary osteoarthritis, left knee (principal)
CPT/HCPCS: 97016; 97110; 97116; 97530; 99199

== ENCOUNTER 2023-11-16 14:44 | Outpatient (CLI) | payer MEDICARE, SELFPAY ==
--- NOTE | ~2023-11-16 | MM_ITS ---
EXAMINATION: MM screening lesli BI w thomas HISTORY: Screening TECHNIQUE: Craniocaudal and mediolateral oblique 3-D tomosynthesis images were obtained and synthetic 2-D images were generated. CAD analysis was submitted and interpreted. COMPARISON: 07/01/2022 BREAST PARENCHYMAL COMPOSITION: Not dense: There are scattered areas of fibroglandular density. FINDINGS: There is no evidence of suspicious mass, calcification, or architectural distortion to sugg est malignancy in either breast. There has been no suspicious interval change. IMPRESSION: 1. No mammographic evidence of malignancy. 2. Recommend routine screening mammography in one year. BI-RADS Category 1: Negative Reviewed, dictated and finalized at location B.
== END 2023-11-16 14:45 | disposition home or self-care (01) ==
LOC: ANHIMG 14:46
PROVIDERS: PCP Family Medicine; Visit Provider Family Medicine
DX: Z12.31 Encounter for screening mammogram for malignant neoplasm of breast (principal)
CPT/HCPCS: 77063; 77067

== ENCOUNTER 2023-11-17 14:00 | Outpatient (CLI) | payer MEDICARE, SELFPAY ==
--- NOTE | ~2023-11-17 | MR_ITS ---
MRI of the left hip Clinical history: Pain, gluteus medius strain Technique: Coronal T1-weighted, T2-weighted, and proton-density fat-sat images, and axial T1-weighted and proton-density fat-sat images were acquired through the pelvis. Coronal T2-weighted images and c oronal, axial, and sagittal proton-density fat-sat images were acquired through the left hip. Findings: Left hip arthroplasty in place. No acute fracture or dislocation seen. Visualized bone [place] ow signals are unremarkable. Right hip joint is intact. No right hip joint effusion. SI joints are in tact. There is probable diffuse edematous change of the left gluteus medius muscle. Visualized tendons appe ar intact. Remaining musculature appears unremarkable. No fluid collection or mass lesion seen. IMPRESSION: Diffuse edematous change of the left gluteus medius muscle, compatible with muscle strain. Left hip arthroplasty. Reviewed, dictated and finalized at location . IMPRESSION: Diffuse edematous change of the left gluteus medius muscle, compatible with mus jason strain. Left hip arthroplasty.
== END 2023-11-17 14:01 ==
LOC: GOSHIMG 14:01
PROVIDERS: PCP Orthopaedic Surgery; Visit Provider Orthopaedic Surgery
DX: M17.12 Unilateral primary osteoarthritis, left knee (principal); S76.019A Strain of muscle, fascia and tendon of unspecified hip, initial encounter; X58.XXXA Exposure to other specified factors, initial encounter
CPT/HCPCS: 73721

== ENCOUNTER 2024-01-12 12:30 | Outpatient (RCR) | payer MEDICARE, SELFPAY ==
--- NOTE | 2023-12-25 11:43 | OPREHPOC ---
Outpatient Therapy Plan of Care This is a Multidisciplinary Plan of Care that may contain components documented by all disciplines (PT, OT, and ST.) PT Problem 1 PT Problem #1 Knowledge Deficit PT Goal 1 Goal / Goal Update Hooker with progressive hip strength program Target Visit 2 PT Goal 2 Goal / Goal Update Patient will ambulate with even stride length bilaterally and absence of lateral trunk shift Target Visit 2 PT Problem 2 PT Problem #2 Impaired Strength PT Goal 1 Goal / Goal Update improve L hip abduction strength to 4+/5 to improve lateral stability with ADLs Target Visit 2
--- NOTE | 2023-12-25 11:43 | PTOPEVAL1 ---
Assessment and note entered by David Judge, PT Evaluation Information Assessment Status Evaluation Diagnosis Altered gait ICD-10 Condition Codes (PT) Pain in left hip M25.552 Onset 2013 Subjective Information Reports that since last discharge she has noticed continued discomfort in the hip. She is still concerned with swelling and has been cutting her activity down about 33% and wearing compression on the left leg. She has not been using cane or adaptive aid at this time for her walks. Assessment PT Clinical Summary Patient presented to therapy with follow up to address alf continuation of hip weakness and altered gait following history of TKA. Knee remains very strong and stable. She continues to show weakness in lateral hip with compensated Trendelenburg pattern of left hip . We spent significant time discussing hip isolation, strengthening, and altering gait pattern to improve hip activation. Patient felt she was mostly independent but is still not where she feels she needs to be from a rehab perspective. Patient will be followed to ensure alf progress is met focusing on hip strengthening and functional education. Plan of Care Interventions Gait Training,Manual Therapy,Neuro Re-education, Therapeutic Activities,Therapeutic Exercise PT Services Indicated Yes Treatment Frequency and 1x/week with follow up in 3 weeks. Duration These treatments will address the objective and functional deficits as defined above. The patient will be advanced safely and appropriately in order for the patient to progress towards his/her prior level of function. Additional exercises will be introduced and as well as a comprehensive home exercise program upon discharge, if needed, ?to ensure carryover of functional gains achieved in the clinic. This treatment plan has been reviewed and agreement upon by the patient.
--- NOTE | 2024-01-14 17:30 | PTOPDC ---
Assessment and note entered by David Judge, PT Evaluation Information Assessment Status Discharge Diagnosis Altered gait ICD-10 Condition Codes (PT) Pain in left hip M25.552 Onset 2013 Subjective Information Reports that she continues to be very active and has been really focusing on her hip exercises for strengthening and stability. Has been paying more attention to her gait and her glute activation with mobility activity. Plans to continue HEP for continued strengthening. Assessment PT Clinical Summary Patient had extensive education this date in joint mechanics, deficits, and HEP to continue to address these deficits. She shows understanding of deficits and a good understanding of independent resolution with time on the kinematic changes following history of hip issue and new knee arthroplasty. Patient is suitable for discharge at this time. Plan of Care PT Services Indicated D/C to HEP
== END 2024-01-22 09:14 | disposition home or self-care (01) ==
LOC: ANHGOSHPT 12:30
PROVIDERS: PCP Orthopaedic Surgery; Visit Provider Orthopaedic Surgery
DX: M76.892 Other specified enthesopathies of left lower limb, excluding foot (principal)
CPT/HCPCS: 97116; 97161; 97530

== ENCOUNTER 2025-03-15 14:01 | Outpatient (CLI) | payer MEDICARE, SELFPAY ==
--- NOTE | ~2025-03-15 | XR_ITS ---
XR humerus RT 03/15/2025 14:29 INDICATION: Right arm pain PROCEDURE: 2 views right humerus COMPARISON: No prior studies for comparison. FINDINGS: Fracture, dislocation or subluxation is not identified. The soft tissues appear within normal limits. No foreign bodies are identified. IMPRESSION: 1: NO ACUTE BONE OR JOINT ABNORMALITY IDENTIFIED. Reviewed, dictated and finalized at location I. [employer]
== END 2025-03-15 14:02 | disposition home or self-care (01) ==
LOC: GOSHIMG 14:01
DX: M79.601 Pain in right arm (principal)
CPT/HCPCS: 73060